=== PATIENT | female | born 1950 | race Caucasian/White ===

== ENCOUNTER 2016-09-11 22:00 | Emergency (ER) | payer OTHER ==
[~2016-09-11] VITALS: Ht 165.1 cm; Wt 81.6 kg
--- NOTE | 2016-09-11 23:28 | NUR ---
Patient discharged to home in stable conditon. Written and verbal after care instructions given. Patient verbalizes understanding of instructions.
== END 2016-09-11 23:29 | disposition home or self-care (01) ==
LOC: ER 22:00
DX: S63.617A Unspecified sprain of left little finger, initial encounter (principal); I10 Essential (primary) hypertension; W22.8XXA Striking against or struck by other objects, initial encounter; Y93.89 Activity, other specified; Y99.8 Other external cause status; Y92.89 Other specified places as the place of occurrence of the external cause
CPT/HCPCS: 73130; A4663

== ENCOUNTER 2018-09-30 16:09 | Inpatient (IN) | payer MEDICARE, OTHER ==
[~2018-09-30] VITALS: Ht 154.9 cm; Wt 84.4 kg
[2018-09-30] MEDS ORDERED: METFORMIN (16:27)
[2018-09-30] MEDS ORDERED: FISH OIL (16:27)
[2018-09-30 16:48] LABS: BASOPHILS # (AUTO) 0.1 K/uL (0.0-8.0); BASOPHILS % (AUTO) 0.8 % (0.0-2.0); EOSINOPHILS # (AUTO) 1.6 K/uL (0.0-0.7); EOSINOPHILS % (AUTO) 19.3 % (0.0-7.0); HEMATOCRIT 35.5 % (31.2-41.9); HEMOGLOBIN 11.8 g/dL (10.9-14.3); LYMPHOCYTES # (AUTO) 2.6 K/uL (20.0-40.0); LYMPHOCYTES % (AUTO) 32.2 % (20.5-51.5); MEAN CORPUSCULAR HEMOGLOBIN 26.2 uug (24.7-32.8); MEAN CORPUSCULAR HGB CONC 33 g/dL (32.3-35.6); MEAN CORPUSCULAR VOLUME 78.9 fL (75.5-95.3); MONOCYTES # (AUTO) 0.6 K/uL (2.0-10.0); MONOCYTES % (AUTO) 7.1 % (0.0-11.0); NEUTROPHILS # (AUTO) 3.3 K/uL (1.8-8.9); NEUTROPHILS % (AUTO) 40.6 % (38.5-71.5); PLATELET COUNT (AUTO) 227 K/uL (179-408); WHITE BLOOD COUNT (AUTO) 8.1 K/uL (3.8-11.8)
[2018-09-30 16:55] LABS: CREATININE 1.1 mg/dL (0.6-1.3); POTASSIUM 4.3 mmol/L (3.5-5.1)
[2018-09-30] MEDS ORDERED: JANUVIA PO (16:59)
[2018-09-30] MEDS ORDERED: CLOP75TA15 PO (16:59)
[2018-09-30] MEDS ORDERED: AMLODIPINE (16:59)
[2018-09-30] MEDS ORDERED: ASPI81TA31 PO (16:59)
--- NOTE | 2018-09-30 17:03 | NUR ---
PT IS IN ROOM #1B. DR MEDRANO EVALUATED THE PT.
--- NOTE | 2018-09-30 17:43 | NUR ---
Repeat EKG done and handed to .
[2018-09-30] MEDS ORDERED: MAG HYDROX/AL HYDROX/SIMETH 30 ML LIQUID UDC PO ONE (18:00)
[2018-09-30] MEDS ORDERED: HEPARIN SODIUM,PORCINE 5,000 UNITS/ML VIAL IV ONE (18:15)
[2018-09-30] MEDS ORDERED: HEPARIN/D5W DRIP 500 ML ONE (18:34)
[2018-09-30] MEDS ORDERED: HEPARIN SODIUM,PORCINE 5,000 UNITS/ML VIAL ONE (18:35)
[2018-09-30] MEDS: HEPARIN/D5W DRIP 500 ML IV PRN ×2 (18:57→19:07)
[2018-09-30] MEDS ORDERED: MAG HYDROX/AL HYDROX/SIMETH 30 ML LIQUID UDC ONE (19:00)
--- NOTE | 2018-09-30 19:12 | NUR ---
REPORT GIVEN TO ROBERTA BECKER.
--- NOTE | 2018-09-30 19:20 | NUR ---
Report received from Nguyễn GRANADOS. Patient in bed; NAD noted. Denies chest pain or discomfort. Family at bedside; daughter Beba tel# [phone].
--- NOTE | 2018-09-30 19:50 | NUR ---
Report given to Abraham GRANADOS.
[2018-09-30] MEDS ORDERED: MORPHINE SULFATE 2 MG/1 ML DISP.SYRIN IV PRN (20:00)
[2018-09-30] MEDS ORDERED: INSULIN REGULAR, HUMAN 300 UNIT/3 ML VIAL SQ PRN (20:00)
[2018-09-30] MEDS ORDERED: INSULIN REGULAR, HUMAN 300 UNITS/3 ML VIAL SQ PRN (20:00)
[2018-09-30] MEDS ORDERED: DEXTROSE 50% 50 ML DISP.SYRIN IV PRN (20:00)
[2018-09-30] MEDS ORDERED: NITROGLYCERIN 0.4 MG/TAB BOTTLE SL PRN (20:00)
--- NOTE | 2018-09-30 20:08 | NUR ---
Pt. admitted to 314 , under care of Dr. Winters. DX: ACS. Heparin drip infusing well @ 972 units/H. Denies chest pain. [place] completed.
--- NOTE | 2018-09-30 20:30 | NUR ---
ADMITTED FROM ER VIA [place] , AWAKE, ALERT & ORIENTED X3. DENIES CHEST PAIN THIS TIME. IVF OF HEPARIN DRIP @ 972 UNITS/HR ON RFA NO SIGNS OF INFILTRATION. ON O2 @ 2LNC W/ O2 SAT OF 98%. NOT IN ANY DISTRESS.
[2018-09-30] MEDS: CARVEDILOL 6.25 MG TABLET PO SCH (20:35)
[2018-09-30 20:38] VITALS: BP 178/81
[2018-09-30] MEDS: BLOOD SUGAR DIAGNOSTIC 1 EACH STRIP VI SCH (20:43)
--- NOTE | 2018-09-30 20:45 | NUR ---
DR CERDA CAME IN & EVALUATED PT W/ ORDERS.
--- NOTE | 2018-09-30 21:00 | NUR ---
CHECKED PT WEIGHT-84 KG, ADJUSTED HEPARIN RATE, PHARMACY NOTIFIED.
[2018-10-01 00:14] VITALS: BP 157/75
--- NOTE | 2018-10-01 06:00 | NUR ---
SLEPT WELL. NO CHEST PAIN ALL NIGHT. NOT IN ANY DISTRESS.
[2018-10-01 06:26] VITALS: BP 145/65
[2018-10-01] MEDS: BLOOD SUGAR DIAGNOSTIC 1 EACH STRIP VI SCH ×3 (06:53→16:30)
[2018-10-01 07:13] LABS: BASOPHILS % (AUTO) 0.7 % (0.0-2.0); EOSINOPHILS # (AUTO) 1.3 K/uL (0.0-0.7); EOSINOPHILS % (AUTO) 18.6 % (0.0-7.0); HEMATOCRIT 33.4 % (31.2-41.9); HEMOGLOBIN 11.1 g/dL (10.9-14.3); LYMPHOCYTES # (AUTO) 2.5 K/uL (20.0-40.0); MEAN CORPUSCULAR HEMOGLOBIN 26.5 uug (24.7-32.8); MEAN CORPUSCULAR HGB CONC 33 g/dL (32.3-35.6); MEAN CORPUSCULAR VOLUME 79.6 fL (75.5-95.3); MONOCYTES # (AUTO) 0.5 K/uL (2.0-10.0); MONOCYTES % (AUTO) 6.5 % (0.0-11.0); NEUTROPHILS # (AUTO) 2.8 K/uL (1.8-8.9); NEUTROPHILS % (AUTO) 39.2 % (38.5-71.5); PLATELET COUNT (AUTO) 205 K/uL (179-408)
[2018-10-01 07:51] LABS: CREATININE 1.1 mg/dL (0.6-1.3); MAGNESIUM 1.8 mg/dL (1.8-2.4); PHOSPHOROUS 3.9 mg/dL (2.5-4.9)
[2018-10-01] MEDS: CARVEDILOL 6.25 MG TABLET PO SCH (08:35)
[2018-10-01] MEDS ORDERED: ASPIRIN 81 MG TAB.CHEW PO SCH (09:00)
[2018-10-01 11:26] VITALS: BP 139/66
[2018-10-01] MEDS ORDERED: HEPARIN SODIUM,PORCINE 5,000 UNITS/ML VIAL IV PRN (11:30)
[2018-10-01 15:34] VITALS: BP 132/74
--- NOTE | 2018-10-01 16:50 | NUR ---
Pt refused insulin coverage for a blood sugar of 140 bc she states she is leaving soon and is fine. Pt shows no signs of hypo or hyper glycemia at this time. Continue to monitor pt.
--- NOTE | 2018-10-01 17:20 | NUR ---
Pt dc home via private car daughter picked up patient. Pt DC with exit-care packet, all belongings, ID band and IV removed. pt Stable to DC will follow up with PCP and digital controls technical officer. Pt refused to have appointment made for her.
== END 2018-10-01 17:20 | disposition home or self-care (01) | DRG 391 ==
LOC: ER 16:09 → DOU3 20:00 → TELE-TD3 20:21 → TELE3 21:31
PROVIDERS: ADMIT Internal Medicine; ATTEND Internal Medicine
DX: K21.9 Gastro-esophageal reflux disease without esophagitis (principal); I50.31 Acute diastolic (congestive) heart failure; I25.10 Atherosclerotic heart disease of native coronary artery without angina pectoris; Z95.1 Presence of aortocoronary bypass graft; Z95.5 Presence of coronary angioplasty implant and graft; I25.2 Old myocardial infarction; E78.5 Hyperlipidemia, unspecified; Z79.82 Long term (current) use of aspirin; Z79.02 Long term (current) use of antithrombotics/antiplatelets; Z79.84 Long term (current) use of oral hypoglycemic drugs; R94.31 Abnormal electrocardiogram [ECG] [EKG]; E11.9 Type 2 diabetes mellitus without complications; I11.0 Hypertensive heart disease with heart failure
CPT/HCPCS: 36415; 70030-TC; 71045; 83735; 84100; 85025; 85730; 93005; 93307; A4663; G0378; J1644; J1815; J2270; J3490

== ENCOUNTER 2024-04-05 21:24 | Emergency (ER) | payer MEDICARE, OTHER ==
[~2024-04-05] VITALS: Ht 154.9 cm; Wt 85.7 kg
[~2024-04-05 21:24] MED LIST: AMLODIPINE; ASPI81TA31 PO; CLOP75TA15 PO; FISH OIL; JANUVIA PO; METFORMIN
[2024-04-05 22:34] VITALS: BP 130/70; TEMP 98; O2SAT 98
== END 2024-04-05 22:35 | disposition home or self-care (01) ==
LOC: ER 21:26
DX: S40.021A Contusion of right upper arm, initial encounter (principal); E11.9 Type 2 diabetes mellitus without complications; Z79.02 Long term (current) use of antithrombotics/antiplatelets; Z79.82 Long term (current) use of aspirin; W01.0XXA Fall on same level from slipping, tripping and stumbling without subsequent striking against object, initial encounter; Y93.89 Activity, other specified; Y92.89 Other specified places as the place of occurrence of the external cause; Y99.8 Other external cause status
CPT/HCPCS: 73060; A4606; A4663